=== PATIENT | female | born 1990 | race Caucasian/White ===

== ENCOUNTER 2019-04-28 14:35 | Emergency (ER) | payer MEDICAID ==
[~2019-04-28] VITALS: Ht 160 cm; Wt 63.6 kg
[2019-04-28 15:22] LABS: MICROSCOPIC AUTO
[2019-04-28 15:23] LABS: CULTURE INDICATED? YES
[2019-04-28 15:26] LABS: BASOPHILS # (AUTO) 0.04 x10^3/uL (0-0.1); BASOPHILS % (AUTO) 1 % (0-1); EOSINOPHILS # (AUTO) 0.08 x10^3/uL (0-0.4); EOSINOPHILS % (AUTO) 1 % (1-7); LYMPHOCYTES # (AUTO) 2.11 x10^3/uL (1-3.4); LYMPHOCYTES % (AUTO) 26 % (22-44); MD NO; MEAN CORPUSCULAR HEMOGLOBIN 29.9 pg (27.0-34.8); MEAN CORPUSCULAR HGB CONC 33.2 g/dL (32.4-35.8); MEAN CORPUSCULAR VOLUME 90.2 fL (80-100); MEAN PLATELET VOLUME 7.3 fL (7.4-10.4); MONOCYTES # (AUTO) 0.38 x10^3/uL (0.2-0.8); MONOCYTES % (AUTO) 5 % (2-9); NEUTROPHILS # (AUTO) 5.64 x10^3/uL (1.8-6.8); NEUTROPHILS % (AUTO) 68 % (42-75); PLATELET COUNT 332 x10^3/uL (130-400); RED CELL DISTRIBUTION WIDTH 12.4 % (9.6-15.2)
[2019-04-28 15:37] LABS: ALBUMIN 3.8 g/dL (3.4-5.0); ANION GAP 4 mmol/L (5-15); CHLORIDE 107 mmol/L (98-107); CREATININE 1.15 mg/dL (0.55-1.02)
--- NOTE | 2019-04-28 15:47 | NUR ---
PT TO ROOM AT THIS TIME
--- NOTE | 2019-04-28 16:01 | NUR ---
pt laying on gurney awake & comfortable, texting on cell phone, responds approp to staff, NAD, comfort measures provided, call light within reach.
--- NOTE | 2019-04-28 16:59 | NUR ---
pt upright on gurney awake & comfortable, texting on cell phone, responds approp to staff, NAD, comfort measures provided, call light within reach.
--- NOTE | 2019-04-28 16:59 | NUR ---
pt to US
[2019-04-28] MEDS ORDERED: CEFTRIAXONE 1,000 MG ONE (17:53)
[2019-04-28 17:57] VITALS: BP 141/90
--- NOTE | 2019-04-28 17:57 | NUR ---
pt remains upright on gurney awake & comfortable, texting on cell phone, responds approp to staff, NAD, comfort measures provided, call light within reach.
[2019-04-28] MEDS ORDERED: CEFTRIAXONE 1,000 MG IM ONE (18:00)
[2019-04-28] MEDS ORDERED: IBUPROFEN 200 MG TABLET PO ONE (18:30)
[2019-04-28] MEDS ORDERED: IBUPROFEN 200 MG TABLET ONE (18:38)
--- NOTE | 2019-04-28 18:46 | NUR ---
Patient given discharge instructions and Rx, they have confirmed that they understand the instructions. Patient ambulatory with steady gait.
== END 2019-04-28 18:46 | disposition home or self-care (01) ==
LOC: ED 18:40
DX: O23.42 Unspecified infection of urinary tract in pregnancy, second trimester (principal); Z3A.08 8 weeks gestation of pregnancy
CPT/HCPCS: 36415; 76801; 80048; 81001; 82040; 84702; 84703; 85025; 87086; 96372; 99284; J0696

== ENCOUNTER 2019-10-31 11:24 | Emergency (ER) | payer MEDICAID ==
[~2019-10-31] VITALS: Ht 160 cm; Wt 64.4 kg
[2019-10-31] MEDS ORDERED: MAALOX/HYOSCYAMINE/LIDOCAINE 45 ML BTL ONE (11:59)
[2019-10-31] MEDS ORDERED: MAALOX/HYOSCYAMINE/LIDOCAINE 45 ML BTL PO ONE (12:00)
--- NOTE | 2019-10-31 12:30 | NUR ---
PT HAS CO OF CHEST PAIN ASSOCIATED W COUGH 3 DAYS. DENIES SOB N/V/D. FINAL INSPECTOR PAPER APPLIED. GI COCKTAIL GIVEN.
--- NOTE | 2019-10-31 13:14 | NUR ---
PT STATES SHE HAS SOME RELIEF W GI COCKTAIL. NO NEEDS AT THIS TIME
[2019-10-31 13:39] VITALS: BP 142/98
--- NOTE | 2019-10-31 13:39 | NUR ---
Patient/Caregiver given discharge instructions and they have confirmed that they understand the instructions. Patient ambulatory with steady gait.
== END 2019-10-31 14:08 | disposition home or self-care (01) ==
LOC: ED 12:25
DX: R07.2 Precordial pain (principal); F17.200 Nicotine dependence, unspecified, uncomplicated
CPT/HCPCS: 71045; 93005; 99283

== ENCOUNTER 2021-02-05 09:07 | Emergency (ER) | payer MEDICAID ==
[~2021-02-05] VITALS: Ht 160 cm; Wt 66.6 kg
[2021-02-05 09:23] VITALS: BP 139/91
[2021-02-05] MEDS ORDERED: CEFTRIAXONE 250 MG IM ONE (10:00)
[2021-02-05] MEDS ORDERED: AZITHROMYCIN 500 MG TABLET PO ONE (10:00)
[2021-02-05] MEDS ORDERED: CEFTRIAXONE 1,000 MG ONE (10:08)
[2021-02-05] MEDS ORDERED: LIDOCAINE-MPF 1%, 2ML ONE (10:08)
[2021-02-05] MEDS ORDERED: AZITHROMYCIN 500 MG TABLET ONE (10:12)
== END 2021-02-05 10:25 | disposition home or self-care (01) ==
LOC: ED 09:48
DX: A54.02 Gonococcal vulvovaginitis, unspecified (principal); Z20.2 Contact with and (suspected) exposure to infections with a predominantly sexual mode of transmission; F17.290 Nicotine dependence, other tobacco product, uncomplicated
CPT/HCPCS: 96372; 99284; J0696; 99283